=== PATIENT | male | born 1975 | race Caucasian/White ===

== ENCOUNTER → 2020-12-29 | Emergency (ER) | payer BC, OTHER ==
[2020-12-29 11:58] VITALS: TEMP 98.3; BMI 23.1
[2020-12-29 12:13] VITALS: BP 147/107; PULSE 69
[2020-12-29 12:47] LABS: BASO % 2.2 % (0-2.0); EOS % 2.6 % (0-4.5); HEMATOCRIT 41.8 % (35.4-49); LYMPH % 16.5 % (8-40); MCH 31.3 pg (25.7-33.7); MCHC 33.4 g/dl (32.0-35.9); MEAN CELL VOLUME 93.7 fl (80-96); MEAN PLT VOLUME 9.2 fl (7.5-11.1); MONO % 6.9 % (3.8-10.2); NEUT % 71.8 % (42.8-82.8); PLATELET COUNT 256 10^3/uL (134-434); RBC 4.46 M/mm3 (4.00-5.60); RDW 12.9 % (11.9-15.9); WHITE BLOOD COUNT 8.4 K/mm3 (4.0-10.8)
[2020-12-29 12:55] LABS: ALBUMIN 4.3 g/dl (3.4-5.0); BILIRUBIN,TOTAL 0.7 mg/dl (0.2-1); CALCIUM 8.8 mg/dl (8.5-10); TOT PROT 6.8 g/dl (6.4-8.2)
== END | disposition home or self-care (01) ==
LOC: FER 11:31
DX: R07.89 Other chest pain (principal)
CPT/HCPCS: 36415; 71046-TC-FY; 80053; 84484; 85025; 93005; 99285-25